=== PATIENT | female | born 1955 | race Caucasian/White ===

== ENCOUNTER 2021-02-04 01:10 | Outpatient (RCR) | payer OTHER, SELFPAY ==
[2021-02-04] MEDS: COVID-19 VACC, MRNA(PFIZER)/PF 30 MCG/0.3 ML SYRINGE IM (18:56)
[2021-02-25] MEDS: COVID-19 VACC, MRNA(PFIZER)/PF 30 MCG/0.3 ML SYRINGE IM (18:30)
== END 2021-05-06 23:59 ==
LOC: IMMUN 01:10
PROVIDERS: PCP Student in an Organized Health Care Education/Training Program; Visit Provider Family Medicine
DX: Z23 Encounter for immunization (principal)
CPT/HCPCS: 0001A; 0002A; 91300